=== PATIENT | male | born 1950 | race Hispanic/Latino ===

== ENCOUNTER 2024-03-09 17:26 | Inpatient (IN) | payer MEDICARE ==
[~2024-03-09] VITALS: Ht 160 cm; Wt 78.0 kg
[2024-03-09 18:12] LABS: BASOPHILS % 0.3 % (0.0-1.0); HEMATOCRIT 41.3 % (38.2-49.6); HEMOGLOBIN 14.1 g/dL (14.0-18.0); LYMPHOCYTES # (AUTO) 0.5 (1.0-3.2); LYMPHOCYTES % 6.8 % (18.0-39.1); MEAN CORPUSCULAR HEMOGLOBIN 30.7 pg (28-32); MEAN CORPUSCULAR HGB CONC 34.1 g/dL (31-35); MEAN CORPUSCULAR VOLUME 89.8 fL (81-99); MONOCYTES # (AUTO) 0.4 (0.2-0.8); MONOCYTES % 4.7 % (4.4-11.3); NEUTROPHILS # (AUTO) 6.8 (2.1-6.9); NEUTROPHILS % 87.9 % (38.7-80.0); PLATELET COUNT 129 x10e3/uL (140-360); RED CELL DISTRIBUTION WIDTH 13.2 % (11.7-14.4); WHITE BLOOD COUNT 7.67 x10e3/uL (4.8-10.8)
[2024-03-09] MEDS ORDERED: SODIUM CHLORIDE 0.9% 1000ML 1,000 ML IV SCH (18:15)
[2024-03-09 18:24] LABS: INR 0.95; PROTHROMBIN TIME 13.4 seconds (11.9-14.5)
[2024-03-09 18:29] LABS: ALANINE AMINOTRANSFERASE 13 IU/L (0-55); ALBUMIN 4.3 g/dL (3.5-5.0); ALBUMIN/GLOBULIN RATIO 1.3 (0.8-2.0); ALKALINE PHOSPHATASE 47 IU/L (40-150); ANION GAP 15.5 mmol/L (8-16); BLOOD UREA NITROGEN 20 mg/dL (7-26); BUN/CREATININE RATIO 17 (6-25); CALCIUM 9.2 mg/dL (8.4-10.2); CARBON DIOXIDE 17 mmol/L (22-29); CHLORIDE 106 mmol/L (98-107); CREATINE KINASE 58 IU/L (30-200); CREATININE, SERUM 1.21 mg/dL (0.72-1.25); EST GLOMERULAR FILTRATION RATE 64 ML/MIN (>=60); GLUCOSE 172 mg/dL (74-118); POTASSIUM 3.5 mmol/L (3.5-5.1); SODIUM 135 mmol/L (136-145); TOTAL PROTEIN 7.5 g/dL (6.5-8.1)
[2024-03-09 18:35] LABS: TROPONIN I < 0.001 ng/mL (0-0.300)
[2024-03-09] MEDS: ACETAMINOPHEN 1000 MG/100 ML IV STA (18:45)
[2024-03-09 18:46] LABS: CLARITY,URINE CLEAR (CLEAR); COLOR,URINE YELLOW (YELLOW); GLUCOSE, URINE 500 (NEGATIVE); LEUKOCYTE ESTERASE ,URINE NEGATIVE (NEGATIVE); NITRITE,URINE NEGATIVE (NEGATIVE); PH,URINE 5.5 (5 - 7); PROTEIN,URINE DIPSTICK 1+ (NEGATIVE)
[2024-03-09 18:47] LABS: BILIRUBIN,URINE NEGATIVE (NEGATIVE); KETONES,URINE NEGATIVE (NEGATIVE); URINE UROBILINOGEN 0.2 mg/dL (0.2 - 1)
[2024-03-09 18:49] LABS: BACTERIA,URINE MODERATE /HPF; EPITHELIAL CELLS,URINE FEW /LPF; RBC,URINE 0-5 /HPF (0-5); WBC,URINE (MAN) 0-5 /HPF (0-5)
[2024-03-09 18:50] LABS: MUCUS,URINE FEW (RARE)
[2024-03-09] MEDS: SODIUM CHLORIDE 0.9% 1000ML 1,000 ML IV ONE (18:50)
[2024-03-09] MEDS ORDERED: IOPAMIDOL 370 MG/ML 100 ML INFUS..BTL INJ ONE (19:24)
[2024-03-09] MEDS ORDERED: ONDANSETRON HCL INJ 2MG/ML 2ML 2 MG/ML VIAL IV PRN (21:15)
[2024-03-09] MEDS ORDERED: DEXTROSE 50% SYRINGE 50 ML IV PRN (21:15)
[2024-03-09] MEDS: ACETAMINOPHEN 325 MG TAB PO PRN (21:56)
[2024-03-09] MEDS: CIPROFLOXACIN 400 MG/D5W 200ML 200 ML IV SCH (21:58)
[2024-03-09] MEDS: SODIUM CHLORIDE 0.9% 1000ML 1,000 ML IV SCH (21:58)
[2024-03-09 22:16] VITALS: PULSE 89; RESP 16; O2SAT 98
[2024-03-09 23:12] VITALS: PULSE 99; RESP 19; TEMP 101.8
[2024-03-09] MEDS: IBUPROFEN 600 MG TAB PO STA (23:30)
[2024-03-10] VITALS (12 sets, daily range): BP systolic 111–146; BP diastolic 62–95; PULSE 87–100; RESP 17–22; TEMP 98.2–100.7; O2SAT 95–100
[2024-03-10] MEDS: METRONIDAZOLE 500MG/NS 100ML 100 ML IV SCH (00:07)
[2024-03-10] MEDS ORDERED: FINASTERIDE5 MG PO (00:38)
[2024-03-10] MEDS ORDERED: TAMSULOSIN PO (00:38)
[2024-03-10] MEDS ORDERED: METFORMIN HCL500 MG PO (00:38)
[2024-03-10] MEDS ORDERED: GABAPENTIN100 MG PO (00:38)
[2024-03-10] MEDS ORDERED: SIMVASTATIN20 MG PO (00:38)
[2024-03-10] MEDS ORDERED: OMEPRAZOLE40 MG PO (00:38)
[2024-03-10 05:50] LABS: BASOPHILS % 0.2 % (0.0-1.0); HEMATOCRIT 39.5 % (38.2-49.6); HEMOGLOBIN 13.3 g/dL (14.0-18.0); LYMPHOCYTES # (AUTO) 0.4 (1.0-3.2); LYMPHOCYTES % 8.6 % (18.0-39.1); MEAN CORPUSCULAR HEMOGLOBIN 30.9 pg (28-32); MEAN CORPUSCULAR HGB CONC 33.7 g/dL (31-35); MEAN CORPUSCULAR VOLUME 91.9 fL (81-99); MONOCYTES # (AUTO) 0.3 (0.2-0.8); MONOCYTES % 5.5 % (4.4-11.3); NEUTROPHILS # (AUTO) 4.4 (2.1-6.9); NEUTROPHILS % 85.3 % (38.7-80.0); PLATELET COUNT 107 x10e3/uL (140-360); RED CELL DISTRIBUTION WIDTH 13.4 % (11.7-14.4); WHITE BLOOD COUNT 5.12 x10e3/uL (4.8-10.8)
[2024-03-10 06:27] LABS: ALBUMIN 3.6 g/dL (3.5-5.0); ALBUMIN/GLOBULIN RATIO 1.3 (0.8-2.0); ANION GAP 17.7 mmol/L (8-16); BILIRUBIN,TOTAL 1.1 mg/dL (0.2-1.2); CALCIUM 8.4 mg/dL (8.4-10.2); CREATININE, SERUM 1.33 mg/dL (0.72-1.25); POTASSIUM 3.7 mmol/L (3.5-5.1); TOTAL PROTEIN 6.4 g/dL (6.5-8.1)
[2024-03-10] MEDS: FINASTERIDE 5 MG TAB PO SCH (08:50)
[2024-03-10] MEDS: IBUPROFEN 200 MG TAB PO ONE (09:26)
[2024-03-10 09:38] LABS: BAND NEUTROPHILS % (MANUAL) 10 %; LYMPHOCYTES % (MANUAL) 7 % (19-48); MONOCYTES % (MANUAL) 7 % (3.4-9.0); NEUTROPHILS % (MANUAL) 76 % (40-74); PLATELET ESTIMATE SLIGHTLY DECREASED; PLATELET MORPHOLOGY COMMENT NORMAL; RBC MORPHOLOGY COMMENT NORMAL
[2024-03-10] MEDS: INSULIN REGULAR, HUMAN 100 UNIT/1 ML SQ SCH (11:00)
[2024-03-10 15:13] LABS: ANION GAP 15.8 mmol/L (8-16); CALCIUM 8.7 mg/dL (8.4-10.2); CREATININE, SERUM 1.24 mg/dL (0.72-1.25); POTASSIUM 3.8 mmol/L (3.5-5.1)
[2024-03-10] MEDS: SIMVASTATIN 20 MG TAB PO SCH (20:43)
[2024-03-10] MEDS: TAMSULOSIN HCL 0.4 MG CAP PO SCH (20:43)
[2024-03-10] MEDS: PANTOPRAZOLE SOD 40 MG TABEC PO SCH (20:43)
[2024-03-11] VITALS (7 sets, daily range): BP systolic 105–136; BP diastolic 63–74; PULSE 72–90; RESP 18–21; TEMP 97.8–100.8; O2SAT 97–100
[2024-03-11] MEDS: LACTOBACILLUS ACIDOPHILUS CAPSULE PO SCH (14:29)
[2024-03-12] VITALS (8 sets, daily range): BP systolic 99–134; BP diastolic 55–79; PULSE 65–79; RESP 16–19; TEMP 97.4–98.5; O2SAT 98–100
[2024-03-12 05:49] LABS: BASOPHILS % 0.7 % (0.0-1.0); EOSINOPHILS % 0.7 % (0.0-6.0); HEMATOCRIT 33.9 % (38.2-49.6); HEMOGLOBIN 11.4 g/dL (14.0-18.0); LYMPHOCYTES # (AUTO) 1.2 (1.0-3.2); LYMPHOCYTES % 43.3 % (18.0-39.1); MEAN CORPUSCULAR HEMOGLOBIN 30.4 pg (28-32); MEAN CORPUSCULAR HGB CONC 33.6 g/dL (31-35); MEAN CORPUSCULAR VOLUME 90.4 fL (81-99); MONOCYTES # (AUTO) 0.3 (0.2-0.8); MONOCYTES % 12.3 % (4.4-11.3); NEUTROPHILS # (AUTO) 1.2 (2.1-6.9); NEUTROPHILS % 42.6 % (38.7-80.0); PLATELET COUNT 87 x10e3/uL (140-360); RED BLOOD COUNT 3.75 x10e6/uL (4.3-5.7); RED CELL DISTRIBUTION WIDTH 13.2 % (11.7-14.4); WHITE BLOOD COUNT 2.77 x10e3/uL (4.8-10.8)
[2024-03-12 06:24] LABS: ANION GAP 7.2 mmol/L (8-16); CALCIUM 8.5 mg/dL (8.4-10.2); CREATININE, SERUM 1.06 mg/dL (0.72-1.25); MAGNESIUM 1.7 MG/DL (1.3-2.1)
[2024-03-12 06:28] LABS: POTASSIUM 3.2 mmol/L (3.5-5.1)
[2024-03-12 11:54] LABS: BAND NEUTROPHILS % (MANUAL) 11 %; EOSINOPHILS % (MANUAL) 2 % (0-7); LYMPHOCYTES % (MANUAL) 57 % (19-48); MONOCYTES % (MANUAL) 3 % (3.4-9.0); NEUTROPHILS % (MANUAL) 27 % (40-74); PLATELET ESTIMATE MODERATELY DECREASED; PLATELET MORPHOLOGY COMMENT MODERATE LARGE; RBC MORPHOLOGY COMMENT NORMAL
[2024-03-12] MEDS: METRONIDAZOLE 500 MG TAB PO SCH (14:09)
[2024-03-12] MEDS: CIPROFLOXACIN 500 MG TAB PO SCH (17:11)
[2024-03-13] VITALS (7 sets, daily range): BP systolic 117–150; BP diastolic 63–81; PULSE 60–70; RESP 16–20; TEMP 97.5–98.2; O2SAT 99–100
[2024-03-13] MEDS: RIFAXIMIN 550 MG TABLET PO STA (01:48)
[2024-03-13] MEDS: DICYCLOMINE HCL 20 MG TAB PO ONE (01:49)
[2024-03-13] MEDS: RIFAXIMIN 550 MG TABLET PO SCH (05:53)
[2024-03-13 06:48] LABS: BASOPHILS % 0.6 % (0.0-1.0); EOSINOPHILS # (AUTO) 0.1 (0.0-0.4); EOSINOPHILS % 1.4 % (0.0-6.0); HEMATOCRIT 33.6 % (38.2-49.6); HEMOGLOBIN 11.6 g/dL (14.0-18.0); LYMPHOCYTES % 29.2 % (18.0-39.1); MEAN CORPUSCULAR HEMOGLOBIN 30.2 pg (28-32); MEAN CORPUSCULAR HGB CONC 34.5 g/dL (31-35); MEAN CORPUSCULAR VOLUME 87.5 fL (81-99); MONOCYTES # (AUTO) 0.3 (0.2-0.8); MONOCYTES % 9.3 % (4.4-11.3); NEUTROPHILS # (AUTO) 2.1 (2.1-6.9); NEUTROPHILS % 58.9 % (38.7-80.0); PLATELET COUNT 100 x10e3/uL (140-360); RED BLOOD COUNT 3.84 x10e6/uL (4.3-5.7); RED CELL DISTRIBUTION WIDTH 13.4 % (11.7-14.4); WHITE BLOOD COUNT 3.53 x10e3/uL (4.8-10.8)
[2024-03-13 07:44] LABS: ANION GAP 12.2 mmol/L (8-16); CALCIUM 8.2 mg/dL (8.4-10.2); CREATININE, SERUM 1.06 mg/dL (0.72-1.25)
[2024-03-13 07:53] LABS: POTASSIUM 3.2 mmol/L (3.5-5.1)
[2024-03-13] MEDS: DICYCLOMINE HCL 20 MG TAB PO SCH (08:53)
[2024-03-13] MEDS: POTASSIUM CHLORIDE 10MEQ EA PO ONE (11:14)
[2024-03-14] VITALS: BP 134/81; PULSE 66; RESP 18; TEMP 97.8; O2SAT 99
[2024-03-14 05:41] VITALS: BP 125/69; PULSE 60; RESP 16; TEMP 97.7; O2SAT 100
[2024-03-14 05:59] LABS: BASOPHILS % 0.6 % (0.0-1.0); EOSINOPHILS # (AUTO) 0.1 (0.0-0.4); EOSINOPHILS % 2.4 % (0.0-6.0); HEMATOCRIT 32.1 % (38.2-49.6); HEMOGLOBIN 10.8 g/dL (14.0-18.0); LYMPHOCYTES # (AUTO) 1.4 (1.0-3.2); LYMPHOCYTES % 42.5 % (18.0-39.1); MEAN CORPUSCULAR HEMOGLOBIN 29.8 pg (28-32); MEAN CORPUSCULAR HGB CONC 33.6 g/dL (31-35); MEAN CORPUSCULAR VOLUME 88.7 fL (81-99); MONOCYTES # (AUTO) 0.3 (0.2-0.8); MONOCYTES % 8.9 % (4.4-11.3); NEUTROPHILS # (AUTO) 1.5 (2.1-6.9); NEUTROPHILS % 45.3 % (38.7-80.0); PLATELET COUNT 115 x10e3/uL (140-360); RED BLOOD COUNT 3.62 x10e6/uL (4.3-5.7); RED CELL DISTRIBUTION WIDTH 13.3 % (11.7-14.4); WHITE BLOOD COUNT 3.27 x10e3/uL (4.8-10.8)
[2024-03-14 06:52] LABS: ALBUMIN/GLOBULIN RATIO 1.3 (0.8-2.0); ANION GAP 12.3 mmol/L (8-16); BILIRUBIN,TOTAL 0.8 mg/dL (0.2-1.2); CALCIUM 8.3 mg/dL (8.4-10.2); MAGNESIUM 1.6 MG/DL (1.3-2.1); TOTAL PROTEIN 5.4 g/dL (6.5-8.1)
[2024-03-14 06:56] LABS: POTASSIUM 3.3 mmol/L (3.5-5.1)
[2024-03-14 07:34] LABS: BASOPHILS % (MANUAL) 1 % (0-1.5); EOSINOPHILS % (MANUAL) 2 % (0-7); LYMPHOCYTES % (MANUAL) 31 % (19-48); MONOCYTES % (MANUAL) 2 % (3.4-9.0); NEUTROPHILS % (MANUAL) 64 % (40-74); PLATELET ESTIMATE SLIGHTLY DECREASED; PLATELET MORPHOLOGY COMMENT NORMAL; RBC MORPHOLOGY COMMENT NORMAL
[2024-03-14 08:13] VITALS: BP 151/92; PULSE 68; RESP 17; TEMP 98.3; O2SAT 100
[2024-03-14 09:10] VITALS: BP 151/92; PULSE 68; RESP 17; TEMP 98.3; O2SAT 100
[2024-03-14] MEDS ORDERED: POTASSIUM CHLO20 ME1 PO (11:27)
[2024-03-14] MEDS ORDERED: DICYCLOMINE HCL20 MG PO (11:27)
[2024-03-14] MEDS ORDERED: XIFAXAN550 MG PO (11:27)
[2024-03-14 11:32] VITALS: BP 135/87; PULSE 63; RESP 17; TEMP 97.8; O2SAT 99
[2024-03-14] MEDS: MAGNESIUM OXIDE 400 MG TAB PO ONE (12:58)
[2024-03-14] MEDS: POTASSIUM CHLORIDE 10MEQ EA PO ONE (12:58)
[2024-03-14 15:59] VITALS: BP 144/78; PULSE 65; RESP 19; TEMP 98.6; O2SAT 100
[2024-03-16 04:37] LABS: ENTEROVIRUS RNA QUAL PCR Negative (Negative)
[2024-03-16 07:22] LABS: ENDOMYSIAL ANTIBODIES, IGA Negative (Negative)
[2024-03-16 07:35] LABS: IMMUNOGLOBULIN A 159 mg/dL (61-437); TISSUE TRANSGLUTAMINASE IGA AB <2 U/mL (0-3)
== END 2024-03-14 18:01 | disposition home or self-care (01) | DRG 872 ==
LOC: ER 18:06 → ERHOLD 21:10 → MED/SURG2 23:39 → OBSVTOIN 03-10 10:46
PROVIDERS: ADMIT Internal Medicine; ATTEND Internal Medicine
PROC: 3E0333Z Introduction of Anti-inflammatory into Peripheral Vein, Percutaneous Approach (ICD-10-PCS; principal; 2024-03-10)
DX: A41.9 Sepsis, unspecified organism (principal); A09 Infectious gastroenteritis and colitis, unspecified; N17.9 Acute kidney failure, unspecified; D61.818 Other pancytopenia; K58.0 Irritable bowel syndrome with diarrhea; E86.9 Volume depletion, unspecified; E11.9 Type 2 diabetes mellitus without complications; I10 Essential (primary) hypertension; E78.2 Mixed hyperlipidemia; N40.0 Benign prostatic hyperplasia without lower urinary tract symptoms; K90.0 Celiac disease; E73.9 Lactose intolerance, unspecified; K21.9 Gastro-esophageal reflux disease without esophagitis; Z11.52 Encounter for screening for COVID-19; E66.09 Other obesity due to excess calories; Z68.30 Body mass index [BMI] 30.0-30.9, adult; Z79.84 Long term (current) use of oral hypoglycemic drugs
CPT/HCPCS: 36415; 71045; 74177; 80048; 80053; 81001; 82550; 82784; 82948; 83516; 83605; 83630; 83735; 83993; 84484; 85025; 85610; 85730; 86256; 87040; 87045; 87086; 87177; 87324; 87328; 87449; 87798; 93005; 94799; 99252; 99284; G0378; J2470; J2543; J7030; Q9967; U0002